=== PATIENT | female | born 1990 | race Caucasian/White ===

== ENCOUNTER 2016-07-04 17:08 | Emergency (ER) | payer OTHER ==
--- NOTE | 2016-07-04 17:14 | UCPHY ---
H & P Patient Type: New HPI/ROS: HPI CHIEF COMPLAINT: Chest pain x3 weeks HISTORY OF PRESENT ILLNESS: This patient very pleasant 25-year-old female significant past medical history for alcoholism, drug use, now clean, no daily medical problems does not take any daily medications except for vitamins, she presents to the the urgent care with sternal pain x3 weeks she describes a burning sensation it does not radiate anywhere. It is not pleuritic. No recent illness, no cough, no hemoptysis, no history DVT or PE. No cardiac history. No left-sided chest pain numbness or tingling, no focal weakness. Describes a burning sensation in the center of her chest x3 weeks. Worse when she laughs. Denies chest pressure. Denies pleuritic pain. Denies abdominal pain. Denies nausea vomiting or diarrhea Past Medical History: History of alcoholism, drug use Past Surgical History: No recent surgical history Social History: Works as a curriculum designer, denies daily tobacco drugs or alcohol Family History: noncontributory ROS REVIEW OF SYSTEMS: A comprehensive 10 point review of systems is otherwise negative aside from elements mentioned in the history of present illness. Exam Constitutional appears well nontoxic, triage nursing summary reviewed, vital signs reviewed, awake/alert. Eyes normal conjunctivae and sclera, EOMI, PERRLA. HENT normal inspection, atraumatic, moist mucus membranes, no epistaxis, neck supple/ no meningismus, no raccoon eyes. Respiratory clear to auscultation bilaterally, normal breath sounds, no respiratory distress, no wheezing. Cardiovascular chest wall: nontender to palpation, rate normal, regular rhythm, no murmur, no edema, distal pulses normal. Gastrointestinal soft, non-tender, no rebound, no guarding, normal bowel sounds, no distension, no pulsatile mass. Genitourinary no CVA tenderness. Musculoskeletal no midline vertebral tenderness, full range of motion, no calf swelling, no tenderness of extremities, no meningismus, good pulses, neurovascularly intact. Skin pink, warm, & dry, no rash, skin atraumatic. Neurologic awake, alert and oriented x 3, AAOx3, moves all 4 extremities equally, motor intact, sensory intact, CN II-XII intact, normal cerebellar, normal vision, normal speech. Psychiatric normal mood/affect. Heme/Lymph/Immune no lymphadenopathy. Differential Diagnosis: Includes but is not limited to in a particular order costochondritis, pleurisy, pneumonia, pulmonary embolism, pneumothorax, doubt acute coronary syndrome, musculoskeletal chest pain, esophagitis, GERD, peptic ulcer disease Medical Decision Making: Plan for this patient patient be placed on full surveillance system monitor, she will have an EKG, two view chest x-ray GI cocktail to see if this improves her discomfort. If GI cocktail does not help we may need broader workup. Re-evaluation: EKG interpretation by me on record in [employer] system. Impression time of EKG 172, sinus rhythm rate of 92 no acute ischemic changes specifically no significant ST elevation, significant ST depression T-wave abnormalities. 180: Re-evaluation this time did not get much relief from the GI cocktail however this time she tells me that she has no discomfort in her chest. X-rays reviewed is unremarkable, EKG unremarkable for ischemia. Will expand her workup slightly given GI cocktail did not greatly improved. Will check a D- dimer and troponin. Unlikely to be cardiac or pulmonary embolism given no risk factors. ED x-ray chest two view: Negative for acute cardiopulmonary disease. 191: Patient is feeling much better after IV Toradol and GI cocktail. Re- evaluation vital signs are stable. Troponin negative D-dimer negative chest x- ray unremarkable EKG nonischemic. This is noncardiac chest pain recommend Zantac for 2 weeks return emergency room if there is any worsening symptoms questions or concerns. Recommend no spicy fatty greasy foods for 2 weeks and see if symptoms improve. Source: Patient - Medical/Surgical History Hx Alcoholism: Yes Other PMH: Alcoholic, history of polydrug abuse, denies surgery or acute medical problems - Family History Significant Family History: No pertinent family hx - Social History Smoking Status: Current every day smoker Constitutional: Initial Vital Signs Temperature (C) 36.5 C 07/04/16 17:20 Heart Rate 84 07/04/16 17:20 Respiratory Rate 18 07/04/16 17:20 Blood Pressure 114/74 07/04/16 17:20 O2 Sat (%) 100 07/04/16 17:20 O2 Delivery Mode Room Air Allergies/Adverse Reactions: adhesive Allergy (Verified 07/04/16 17:20) Home Medications: Medication Instructions Recorded Ranitidine HCl [Zantac] 150 mg PO DAILY #14 tablet 07/04/16 Medical Decision Making - Data Points Laboratory Results: Laboratory Results 07/04/16 18:17 07/04/16 18:17 07/04/16 07/04/16 07/04/16 18:17 18:17 18:17 WBC 8.96 10^3/uL 10^3/uL (3.80-9.50) RBC 4.61 10^6/uL 10^6/uL (4.18-5.33) Hgb 13.8 g/dL g/dL (12.6-16.3) Hct 40.5 % % (38.0-47.0) MCV 87.9 fL fL (81.5-99.8) MCH 29.9 pg pg (27.9-34.1) MCHC 34.1 g/dL g/dL (32.4-36.7) RDW 12.2 % % (11.5-15.2) Plt Count 320 10^3/uL 10^3/uL (150-400) MPV 9.9 fL fL (8.7-11.7) Neut % (Auto) 65.9 % % (39.3-74.2) Lymph % (Auto) 27.7 % % (15.0-45.0) [place] % (Auto) 5.0 % % (4.5-13.0) Eos % (Auto) 0.4 % L % (0.6-7.6) Baso % (Auto) 0.7 % % (0.3-1.7) Nucleat RBC Rel Count 0.0 % % (0.0-0.2) Absolute Neuts (auto) 5.90 10^3/uL 10^3/uL (1.70-6.50) Absolute Lymphs (auto) 2.48 10^3/uL 10^3/uL (1.00-3.00) Absolute Monos (auto) 0.45 10^3/uL 10^3/uL (0.30-0.80) Absolute Eos (auto) 0.04 10^3/uL 10^3/uL (0.03-0.40) Absolute Basos (auto) 0.06 10^3/uL 10^3/uL (0.02-0.10) Absolute Nucleated RBC 0.00 10^3/uL 10^3/uL (0-0.01) Immature Gran % 0.3 % % (0.0-1.1) Immature Gran # 0.03 10^3/uL 10^3/uL (0.00-0.10) PT 13.3 SEC SEC (12.0-15.0) INR 1.04 (0.83-1.16) APTT 27.5 SEC SEC (23.0-38.0) D-Dimer < 0.27 ug/mLFEU ug/mLFEU (0.00-0.50) Sodium 142 mEq/L mEq/L (134-144) Potassium 3.7 mEq/L mEq/L (3.5-5.2) Chloride 98 mEq/L mEq/L (97-110) Carbon Dioxide 25 mEq/l mEq/l (22-31) Anion Gap 19 mEq/L H mEq/L (8-16) BUN 12 mg/dL mg/dL (7-23) Creatinine 0.7 mg/dL mg/dL (0.6-1.0) Estimated GFR > 60 Glucose 101 mg/dL H mg/dL (70-100) Calcium 9.9 mg/dL mg/dL (8.5-10.4) Magnesium 2.0 mg/dL mg/dL (1.6-2.3) Total Bilirubin 0.5 mg/dL mg/dL (0.1-1.4) Conjugated Bilirubin 0.2 mg/dL mg/dL (0.0-0.5) Unconjugated Bilirubin 0.3 mg/dL mg/dL (0.0-1.1) AST 21 IU/L IU/L (14-46) ALT 27 IU/L IU/L (9-52) Alkaline Phosphatase 56 IU/L IU/L (38-126) Troponin I < 0.012 ng/mL ng/mL (0-0.034) NT-Pro-B Natriuret Pep 108 pg/mL pg/mL (0-125) Total Protein 8.8 g/dL H g/dL (6.3-8.2) Albumin 4.8 g/dL g/dL (3.5-5.0) Lipase 57.0 IU/L IU/L (23-300) Medications Given: Discontinued Medications Al Hydroxide/Mg Hydroxide (Maalox Susp) 30 ml PO ONCE ONE Stop: 07/04/16 17:25 Last Admin: 07/04/16 17:36 Dose: 30 ml Hyoscyamine Sulfate (Levsin, Hyomax-Sl) 0.25 mg PO ONCE ONE Stop: 07/04/16 17:25 Last Admin: 07/04/16 17:40 Dose: 0.25 mg Sodium Chloride (Ns) 1,000 mls @ 0 mls/hr IV ONCE ONE PRN Reason: Wide Open Stop: 07/04/16 18:09 Last Admin: 07/04/16 18:24 Dose: 1,000 mls Ketorolac Tromethamine (Toradol) 30 mg IVP EDNOW ONE Stop: 07/04/16 18:27 Last Admin: 07/04/16 18:37 Dose: Not Given Lidocaine (Lidocaine 2% Viscous) 15 ml PO ONCE ONE Stop: 07/04/16 17:25 Last Admin: 07/04/16 17:36 Dose: 15 ml Departure - Departure Disposition: Home, Routine, Self-Care Clinical Impression: Chest pain Qualifiers: Chest pain type: other chest pain Qualified Code(s): R07.89 - Other chest pain Condition: Good Instructions: Chest Pain (ED) Additional Instructions: 1. Take Zantac as prescribed. 2. do not eat spicy fatty greasy foods for 2 weeks. Stay away from coffee. 3.It is possibly discomfort in her chest is GI related 4. Here in the Urgent Care there is no evidence that you are having a heart issue along issue. 5. drink lots of fluids stay well-hydrated. Return to the urgent care or emergency room if worsening symptoms. Referrals: Belkys Ramirez PA [Primary Care Provider] - As per Instructions Prescriptions: Ranitidine HCl [Zantac] 150 mg PO DAILY #14 tablet - PQRS PQRS Measurement: n/a
[2016-07-04] MEDS ORDERED: MAG HYDROX/AL HYDROX/SIMETH 30 ML UDCUP PO ONE (17:24)
[2016-07-04] MEDS ORDERED: LIDOCAINE 2% VISCOUS 15 ML UDCUP PO ONE (17:24)
[2016-07-04] MEDS ORDERED: HYOSCYAMINE SULFATE 0.125 MG TAB PO ONE (17:24)
--- NOTE | 2016-07-04 17:28 | CPEKG ---
Heart Rate: 92 RR Interval: 652 P-R Interval: 148 QRSD Interval: 100 QT Interval: 356 QTC Interval: 441 P [place]: 62 QRS [place]: 59 T Wave [place]: 17 EKG Severity - NORMAL ECG - EKG Impression: SINUS RHYTHM Electronically Signed By: Nik Muñiz 06-Jul-2016 09:03:14
[2016-07-04] MEDS ORDERED: NS 1,000 ML IV ONE (18:08)
[2016-07-04] MEDS ORDERED: KETOROLAC 30 MG/1 ML SDV IVP ONE (18:26)
[2016-07-04 18:29] LABS: % IMMATURE GRANULYOCYTES 0.3 % (0.0-1.1); ABSOLUTE IMMATURE GRANULOCYTES 0.03 10^3/uL (0.00-0.10); ADD DIFF? NO; ADD MORPH? NO; ADD SCAN? NO; ATYPICAL LYMPHOCYTE FLAG 10 (0-99); FRAGMENT RBC FLAG 0 (0-99); HEMATOCRIT 40.5 % (38.0-47.0); HEMOGLOBIN 13.8 g/dL (12.6-16.3); LEFT SHIFT FLG 0 (0-99); LIPEMIA HEMOLYSIS FLAG 90 (0-99); MEAN CELL HEMOGLOBIN 29.9 pg (27.9-34.1); MEAN CELL HEMOGLOBIN CONCENTR. 34.1 g/dL (32.4-36.7); MEAN CELL VOLUME 87.9 fL (81.5-99.8); MEAN PLATELET VOLUME 9.9 fL (8.7-11.7); PLATELET CLUMPS FLAG 0 (0-99); PLATELET COUNT 320 10^3/uL (150-400); RED BLOOD CELL COUNT 4.61 10^6/uL (4.18-5.33); RED CELL DISTRIBUTION WIDTH 12.2 % (11.5-15.2)
[2016-07-04 18:40] LABS: INR 1.04 (0.83-1.16); PROTIME(PATIENT) 13.3 SEC (12.0-15.0)
[2016-07-04 18:41] LABS: APTT 27.5 SEC (23.0-38.0)
[2016-07-04 18:43] LABS: ALANINE AMINOTRANSFERASE 27 IU/L (9-52); ALBUMIN 4.8 g/dL (3.5-5.0); ALKALINE PHOSPHATASE 56 IU/L (38-126); ANION GAP 19 mEq/L (8-16); ASPARTATE AMINOTRANSFERASE 21 IU/L (14-46); BILIRUBIN,TOTAL 0.5 mg/dL (0.1-1.4); BILIRUBIN-CONJUGATED 0.2 mg/dL (0.0-0.5); BILIRUBIN-UNCONJUGATED 0.3 mg/dL (0.0-1.1); CALCIUM 9.9 mg/dL (8.5-10.4); CARBON DIOXIDE 25 mEq/l (22-31); CHLORIDE 98 mEq/L (97-110); CREATININE 0.7 mg/dL (0.6-1.0); GLOMERULAR FILTRATION RATE > 60; GLUCOSE 101 mg/dL (70-100); POTASSIUM 3.7 mEq/L (3.5-5.2); SODIUM 142 mEq/L (134-144); TOTAL PROTEIN 8.8 g/dL (6.3-8.2)
[2016-07-04 18:55] LABS: TROPONIN I < 0.012 ng/mL (0-0.034)
[2016-07-04 19:06] VITALS: BP 111/68; PULSE 70; RESP 16; TEMP 97.9; O2SAT 97
== END 2016-07-04 19:15 | disposition home or self-care (01) ==
LOC: CED 17:08
DX: R07.89 Other chest pain (principal); F10.21 Alcohol dependence, in remission; Z72.0 Tobacco use
CPT/HCPCS: 71020-PO; 80048-PO; 80076-PO; 83690-PO; 83735-PO; 83880-PO; 84484-PO; 85025-PO; 85378-PO; 85610-PO; 85730-PO; 93010-PO; 96360-PO; 99205-PO; G0463-PO; J1885

== ENCOUNTER 2017-01-28 10:00 | Emergency (ER) | payer SELFPAY ==
[2017-01-28 10:16] VITALS: TEMP 98.6
--- NOTE | 2017-01-28 10:31 | EDPHY ---
H & P Time Seen by Provider: 01/28/17 10:07 HPI/ROS: HPI Abdominal discomfort. 26-year-old female by private vehicle with her friend. This patient reports that several months ago she reports pulling a muscle in the left low upper abdomen just below her rib margin. She reports from that she was having some cramping pain that was worse with movement, coughing, laughing. This then resolved. She reports however since Tuesday she has had pain which she describes is vague and diffuse and migrating through her abdomen sometimes in her left upper quadrant, sometimes in her right upper quadrant, sometimes in her lower abdomen and across her lower abdomen. She is not had any vomiting associated with this. No diarrhea. No bloody or melenic stool. Denies fever. No urinary complaints. Last bowel movement was prior to arrival today. She describes this is normal. Last menstrual period was about 2 weeks ago. Last meal was breakfast this morning. ROS: Constitutional: No fever, no chills. No weakness. Respiratory: No cough. No shortness of breath. Cardiac: No chest pain, no palpitations. Gastrointestinal: As above, no vomiting, no diarrhea. Genitourinary: No hematuria. No dysuria or increased frequency with urination. Musculoskeletal: No back pain. No neck pain. No myalgias or arthralgias. Skin: No rashes. Neurological: No headache. No focal weakness or altered sensation. Past medical history: Alcohol abuse, poly drug abuse. Denies any medical or surgical history. Social history: Nonsmoker. Here with a friend. As above. Physical Exam: General Appearance: Alert, no distress. She appears very comfortable. This patient is responding to questions appropriately and in full sentences. This patient appears well-hydrated and well-nourished. Eyes: Pupils equal and round no pallor or injection. No lid edema, erythema or injection. Respiratory: There are no retractions, lungs are clear to auscultation with good air movement bilaterally. Cardiovascular: Regular rate and rhythm. No murmur. Gastrointestinal: Abdomen is soft and nontender, no masses, bowel sounds normal. No focal tenderness at McBurney's point. No Worley sign. No tenderness throughout her abdomen on deep palpation. Neurological: Motor sensory function is grossly intact. Cranial nerves are normal. Gait is normal. Skin: Warm and dry, no rashes. Musculoskeletal: Neck is supple and nontender. Extremities are symmetrical. All joints range without pain or impingement. Psychiatric: No agitation. No depression. Database: EKG: Imaging: Abdominal ultrasound complete; negative. Results were discussed with staff radiologist Dr. Tristen Dawson. Procedures: Emergency department course: Vital signs reviewed and are normal. She has no abdominal pain at this time. She has a benign abdominal exam in the emergency department. Ultrasound will be obtained to evaluate her gallbladder. Urinalysis will be obtained as well. 11:55 a.m., patient re-evaluated. Resting comfortably at this time. No abdominal pain. Repeat abdominal exam she is soft, nontender nondistended. Results of ultrasound discussed. Results of urinalysis and urine discussed. We will treat her urinary tract infection with Keflex. Urine culture has been ordered. Follow-up and return to emergency department precautions reviewed with her. All of her questions were answered. She was discharged in good condition with her friend. Differential Diagnosis: The differential diagnosis on this patient includes but is not limited to constipation, bowel gas, urinary tract infection. Cholecystitis, appendicitis, bowel obstruction, volvulus, ovarian cyst, ectopic , ovarian torsion, pancreatitis, perforated peptic ulcer unlikely. This represents a partial list of diagnoses considered. These considerations are based on history, physical exam, past history, reassessment and diagnostic testing. Smoking Status: Former smoker Constitutional: Initial Vital Signs Temperature (C) 37.0 C 01/28/17 10:14 Heart Rate 91 01/28/17 10:14 Respiratory Rate 16 01/28/17 10:14 Blood Pressure 124/75 H 01/28/17 10:14 O2 Sat (%) 98 01/28/17 10:14 O2 Delivery Mode Room Air Allergies/Adverse Reactions: adhesive Allergy (Verified 01/28/17 10:11) Home Medications: Medication Instructions Recorded Cephalexin [Keflex (*)] 500 mg PO Q6 7 Days cap 01/28/17 Multivitamin 01/28/17 Medical Decision Making - Diagnostics Imaging Results: Imaging Impressions Abdomen Ultrasound 01/28/17 10:26 Impression: Normal abdominal sonogram. Results communicated to Dr. Rizzo at 11:54 AM - Data Points Laboratory Results: 01/28/17 01/28/17 10:30 10:30 Urine Color YELLOW Urine Appearance HAZY Urine pH 7.0 (5.0-7.5) Ur Specific [place] 1.010 (1.002-1.030) Urine Protein NEGATIVE (NEGATIVE) Urine Ketones NEGATIVE (NEGATIVE) Urine Blood NEGATIVE (NEGATIVE) Urine Nitrate NEGATIVE (NEGATIVE) Urine Bilirubin NEGATIVE (NEGATIVE) Urine Urobilinogen 0.2 EU EU (0.2-1.0) Ur Leukocyte Esterase 1+ H (NEGATIVE) Urine RBC 0-1 /hpf /hpf (0-3) Urine WBC 5-10 /hpf H /hpf (0-3) Ur Epithelial Cells 2+ /lpf H /lpf (NONE-1+) Urine Bacteria TRACE /hpf H /hpf (NONE SEEN) Urine Yeast OCCASIONAL /hpf H /hpf (NONE SEEN) Urine Glucose NEGATIVE (NEGATIVE) Urine Test NEGATIVE Departure - Departure Disposition: Home, Routine, Self-Care Clinical Impression: Abdominal discomfort, Urinary tract infection Condition: Good Instructions: Urinary Tract Infection in Women (ED), Abdominal Pain (ED) Additional Instructions: Read and follow provided instructions. Follow-up with your primary care physician in 2-3 days for re-evaluation as discussed. Ibuprofen dosin mg every 6 hours with meals for the next 3 days only. Take only as needed for pain. Take antibiotic as prescribed for treatment of urinary tract infection. Return to the emergency department for worsening abdominal pain, blood in her stool, vomiting, fever, back pain or other serious concerns. Referrals: [facility],. [Primary Care Provider] - As per Instructions Prescriptions: Cephalexin [Keflex (*)] 500 mg PO Q6 7 Days cap
[2017-01-28 11:00] LABS: COLOR YELLOW; LEUKOCYTE ESTERASE,URINE 1+ (NEGATIVE); NITRITE,URINE NEGATIVE (NEGATIVE)
[2017-01-28 11:12] LABS: BACTERIA TRACE /hpf (NONE SEEN); RBC,URINE 0-1 /hpf (0-3); YEAST OCCASIONAL /hpf (NONE SEEN)
[2017-01-28 12:11] VITALS: BP 115/63; PULSE 83; RESP 18; O2SAT 97
== END 2017-01-28 12:08 | disposition home or self-care (01) ==
LOC: CED 10:00
DX: N39.0 Urinary tract infection, site not specified (principal); B96.89 Other specified bacterial agents as the cause of diseases classified elsewhere; Z87.891 Personal history of nicotine dependence
CPT/HCPCS: 76700-PO; 81003-PO; 81015-PO; 81025-PO